=== PATIENT | male | born 1975 | race African-American/Black ===

== ENCOUNTER 2021-09-18 19:04 | Emergency (ER) | payer SELFPAY ==
[~2021-09-18] VITALS: Ht 188 cm; Wt 114.0 kg
[2021-09-18 19:06] VITALS: BP 176/104
[2021-09-18] MEDS ORDERED: HYDROCODONE/ACETAMINOPHEN 5/325MG TABLET PO ONE (19:30)
[2021-09-18] MEDS ORDERED: IBUPROFEN 400MG TABLET PO ONE (19:30)
[2021-09-18] MEDS ORDERED: BACITRACIN ZINC OINT UDPKT TOP ONE (19:45)
[2021-09-18 19:58] LABS: BASOPHILS % 0.5 % (0.0-2.0); EOSINOPHILS % 3.1 % (0.0-5.0); HEMATOCRIT. 42.4 % (42.0-52.0); HEMOGLOBIN. 14.1 g/dL (14.0-18.0); LYMPHOCYTES % 38.8 % (20.0-50.0); MEAN CORPUSCULAR HEMOGLOBIN 29.2 pg (28.0-32.0); MEAN CORPUSCULAR VOLUME 87.7 fL (80.0-94.0); MEAN PLATELET VOLUME 8.3 fl (7.4-10.4); MONOCYTES % 9.3 % (2.0-8.0); NEUTROPHILS % 48.3 % (40.0-76.0); PLATELET 302 x1000/uL (130-400); RED BLOOD CELL COUNT 4.84 mill/uL (4.7-6.1); RED CELL DISTRIBUTION WIDTH 15.5 % (11.6-14.6)
[2021-09-18 20:14] LABS: CHLORIDE 105 mEq/L (98-107)
== END 2021-09-18 22:00 | disposition left against medical advice (07) ==
LOC: ER 19:04
DX: S06.9X9A Unspecified intracranial injury with loss of consciousness of unspecified duration, initial encounter (principal); V27.0XXA Motorcycle driver injured in collision with fixed or stationary object in nontraffic accident, initial encounter; Y93.89 Activity, other specified; Y92.488 Other paved roadways as the place of occurrence of the external cause
CPT/HCPCS: 36415; 71045; 71250; 73030; 73080; 73090; 73110; 73130; 73560; 80053; 85025; 99285